=== PATIENT | female | born 1985 | race Caucasian/White ===

== ENCOUNTER 2024-10-02 20:03 | Emergency (ER) | payer OTHER, SELFPAY ==
[2024-10-02 20:10] VITALS: BP 109/64
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
[2024-10-03 01:24] VITALS: BP 102/65
== END 2024-10-03 01:25 | disposition home or self-care (01) ==
LOC: EMR 20:03
PROVIDERS: EMERGENCY PHYSICIAN Emergency Medicine
DX: O9A.211 Injury, poisoning and certain other consequences of external causes complicating pregnancy, first trimester (principal); S06.0X0A Concussion without loss of consciousness, initial encounter; S13.4XXA Sprain of ligaments of cervical spine, initial encounter; Z3A.00 Weeks of gestation of pregnancy not specified; V49.40XA Driver injured in collision with unspecified motor vehicles in traffic accident, initial encounter; O09.521 Supervision of elderly multigravida, first trimester; Z90.49 Acquired absence of other specified parts of digestive tract; Z3A.11 11 weeks gestation of pregnancy
CPT/HCPCS: 99284; 76801